=== PATIENT | female | born 1960 | race American Indian/Alaskan Native ===

== ENCOUNTER 2019-04-26 21:30 | Emergency (ER) | payer MEDICAID, MEDICARE ==
[2019-04-26 21:54] VITALS: BP 158/84
--- NOTE | 2019-04-26 22:22 | Emergency Department Report ---
Chief Complaint: Extremity Injury, Lower Stated Complaint: BOTH LEG PAIN Time Seen by Provider: 04/26/19 22:16 - HPI History of Present Illness: This is a 58 y.o. F. that presents to the ER with right hip pain 1-2 months. She went to PCP 2-3 weeks ago and started on mobic for bursitis. PMH arthritis, chronic knee pain - Exam Vital Signs: Vital Signs 04/26/19 21:40 Temperature 98.2 F Pulse Rate 96 H Respiratory 18 Rate Blood Pressure 158/84 O2 Sat by Pulse 97 Oximetry MSE screening note: Focused history and physical exam performed. Due to findings the following was ordered: This initial assessment/diagnostic orders/clinical plan/treatment(s) is/are subject to change based on patient's health status, clinical progression and re- assessment by fellow clinical providers in the ED. Further treatment and workup at subsequent clinical providers discretion. Patient/guardians urged not to elope from the ED as their condition may be serious if not clinically assessed and managed. Initial orders include: 1- Patient sent to [facility] for further evaluation and treatment 2- XR of right hip ED Disposition for MSE Condition: Stable
--- NOTE | 2019-04-26 23:44 | XRay Report ---
PROCEDURE: Right hip. TECHNIQUE: AP pelvis and frog leg lateral view of the right hip. HISTORY: Hip pain with range of motion. COMPARISONS: None. FINDINGS: The bones appear intact. There are no fractures. Both hip joints appear normal. The sacroiliac joints and symphysis pubis appear normal. The soft tissues are unremarkable. IMPRESSION: Normal study. This document is electronically signed by Thai Turcios MD., Apr 26 2019 11:42:48 PM ET
[2019-04-27] MEDS ORDERED: IBUPROFEN PO STA (02:03)
--- NOTE | 2019-04-27 02:19 | Emergency Department Report ---
ED General Adult HPI - General Chief complaint: Extremity Injury, Lower Stated complaint: BOTH LEG PAIN Time Seen by Provider: 04/26/19 22:16 Source: patient, EMS Mode of arrival: Ambulatory Limitations: Physical Limitation - Related Data Allergies Allergy/AdvReac Type Severity Reaction Status Date / Time gabapentin Allergy Unknown Verified 04/26/19 21:41 lisinopril Allergy Unknown Verified 04/26/19 21:41 ED Review of Systems ROS: Stated complaint: BOTH LEG PAIN Other details as noted in HPI Constitutional: denies: chills, fever Eyes: denies: eye pain, eye discharge, vision change ENT: denies: ear pain, throat pain Respiratory: denies: cough, shortness of breath, wheezing Cardiovascular: denies: chest pain, palpitations Endocrine: no symptoms reported Gastrointestinal: denies: abdominal pain, nausea, diarrhea Genitourinary: denies: urgency, dysuria, discharge Musculoskeletal: denies: back pain, joint swelling, arthralgia Skin: denies: rash, lesions Neurological: denies: headache, weakness, paresthesias Psychiatric: denies: anxiety, depression Hematological/Lymphatic: denies: easy bleeding, easy bruising ED Past Medical Hx - Past Medical History Previous Medical History?: Yes - Surgical History Past Surgical History?: No - Social History Smoking Status: Never Smoker Substance Use Type: None ED Physical Exam - General Limitations: Physical Limitation ED Course Vital Signs 04/26/19 04/26/19 21:40 22:17 Temperature 98.2 F 98.2 F Pulse Rate 96 H 92 H Respiratory 18 18 Rate Blood Pressure 158/84 158/84 O2 Sat by Pulse 97 Oximetry Critical care attestation.: If time is entered above; I have spent that time in minutes in the direct care of this critically ill patient, excluding procedure time. ED Disposition Condition: Stable Referrals: [facility] MD FLAKITA [Primary Care Provider] - 3-5 Days
--- NOTE | 2019-04-27 02:24 | Emergency Department Report ---
ED General Adult HPI - General Chief complaint: Extremity Injury, Lower Stated complaint: BOTH LEG PAIN Time Seen by Provider: 04/26/19 22:16 Source: patient, EMS Mode of arrival: Ambulatory Limitations: Physical Limitation - History of Present Illness Initial comments: 58-year-old obese Afro-[place] female with known history of bilateral knee arthritis currently taking meloxicam since emergency department seeking alternative medication that she feels meloxicam is beginning to lose its effectiveness. Reports no new. No new injury, but has been walking more chest pain palpitations. No nausea, vomiting. -: Gradual, year(s) Location: lower extremity Radiation: non-radiation Quality: aching Consistency: constant Improves with: none Worsens with: none Associated Symptoms: denies: confusion, chest pain, fever/chills, loss of appetite, malaise, nausea/vomiting, rash, shortness of breath, syncope, weakness - Related Data Previous Rx's Medication Instructions Recorded Last Taken Type Ketorolac [Toradol] 10 mg PO Q8HR PRN #20 tablet 04/27/19 Unknown Rx Allergies Allergy/AdvReac Type Severity Reaction Status Date / Time gabapentin Allergy Unknown Verified 04/26/19 21:41 lisinopril Allergy Unknown Verified 04/26/19 21:41 ED Review of Systems ROS: Stated complaint: BOTH LEG PAIN Other details as noted in HPI Constitutional: denies: chills, fever Eyes: denies: eye pain, eye discharge, vision change ENT: denies: ear pain, throat pain Respiratory: denies: cough, shortness of breath, wheezing Cardiovascular: denies: chest pain, palpitations Endocrine: no symptoms reported Gastrointestinal: denies: abdominal pain, nausea, diarrhea Genitourinary: denies: urgency, dysuria, discharge Musculoskeletal: arthralgia. denies: back pain, joint swelling Skin: denies: rash, lesions Neurological: denies: headache, weakness, paresthesias Psychiatric: denies: anxiety, depression Hematological/Lymphatic: denies: easy bleeding, easy bruising ED Past Medical Hx - Past Medical History Previous Medical History?: Yes - Surgical History Past Surgical History?: No - Social History Smoking Status: Never Smoker Substance Use Type: None - Medications Home Medications: Home Medications Medication Instructions Recorded Confirmed Last Taken Type Ketorolac [Toradol] 10 mg PO Q8HR PRN #20 tablet 04/27/19 Unknown Rx ED Physical Exam - General Limitations: Physical Limitation General appearance: alert, in no apparent distress - Head Head exam: Present: atraumatic, normocephalic - Eye Eye exam: Present: normal appearance, PERRL, EOMI Pupils: Present: normal accommodation - ENT ENT exam: Present: normal exam, mucous membranes moist, TM's normal bilaterally - Neck Neck exam: Present: normal inspection, full ROM - Respiratory Respiratory exam: Present: normal lung sounds bilaterally. Absent: respiratory distress - Cardiovascular Cardiovascular Exam: Present: regular rate, normal rhythm. Absent: systolic murmur, diastolic murmur, rubs, gallop - GI/Abdominal GI/Abdominal exam: Present: soft, normal bowel sounds - Extremities Exam Extremities exam: Present: normal inspection - Expanded Lower Extremity Exam Left Upper Leg exam: Present: normal inspection, full ROM Knee exam: Present: tenderness. Absent: swelling, abrasion, laceration, ecchymosis, deformity, dislocation, erythema, effusion, pain/laxity with valgus, pain/laxity with varus Lower Leg exam: Present: normal inspection, full ROM Right Upper Leg exam: Present: normal inspection, full ROM. Absent: tenderness Knee exam: Present: tenderness. Absent: laceration, ecchymosis, deformity, dislocation, erythema Lower Leg exam: Present: normal inspection, full ROM. Absent: tenderness, swell ing Neuro vascular tendon exam: Present: no vascular compromise. Absent: pulse deficit, abnormal cap refill - Back Exam Back exam: Present: normal inspection - Neurological Exam Neurological exam: Present: alert, oriented X3 - Psychiatric Psychiatric exam: Present: normal affect, normal mood - Skin Skin exam: Present: warm, dry, intact, normal color. Absent: rash ED Course Vital Signs 04/26/19 04/26/19 21:40 22:17 Temperature 98.2 F 98.2 F Pulse Rate 96 H 92 H Respiratory 18 18 Rate Blood Pressure 158/84 158/84 O2 Sat by Pulse 97 Oximetry Critical care attestation.: If time is entered above; I have spent that time in minutes in the direct care of this critically ill patient, excluding procedure time. ED Disposition Clinical Impression: Chronic knee pain Disposition: - TO HOME OR SELFCARE Is pt being admited?: No Does the pt Need Aspirin: No Condition: Stable Instructions: Arthralgia (ED) Prescriptions: Ketorolac [Toradol] 10 mg PO Q8HR PRN #20 tablet PRN Reason: Pain Referrals: [facility] MD FLAKITA [Primary Care Provider] - 3-5 Days
== END 2019-04-27 02:36 | disposition home or self-care (01) ==
LOC: ED 21:30
DX: M25.561 Pain in right knee (principal); M25.562 Pain in left knee; M25.551 Pain in right hip; G89.29 Other chronic pain; Z88.8 Allergy status to other drugs, medicaments and biological substances
CPT/HCPCS: 99283